=== PATIENT | female | born 1995 | race Caucasian/White ===

== ENCOUNTER 2023-11-03 10:33 | Emergency (ER) | payer OTHER ==
[~2023-11-03] VITALS: Ht 157.5 cm; Wt 49.9 kg
[2023-11-03] MEDS ORDERED: PRED50TA PO (10:54)
[2023-11-03] MEDS ORDERED: ALBU8.5H8 INH (10:54)
[2023-11-03] MEDS ORDERED: BENZ-13 PO (10:54)
[2023-11-03 11:05] VITALS: BP 116/75; TEMP 98.6; O2SAT 98
== END 2023-11-03 11:06 | disposition home or self-care (01) ==
LOC: ER 10:33
DX: J20.8 Acute bronchitis due to other specified organisms (principal)

== ENCOUNTER 2023-11-23 18:31 | Emergency (ER) | payer OTHER ==
[~2023-11-23] VITALS: Ht 157.5 cm; Wt 55.8 kg
[~2023-11-23 18:31] MED LIST: ALBU8.5H8 INH; BENZ-13 PO; PRED50TA PO
[2023-11-23] MEDS ORDERED: ACETAMINOPHEN ES 500 MG TABLET ONE (20:35)
[2023-11-23] MEDS ORDERED: CYCLOBENZAPRINE 10 MG TABLET ONE (20:36)
[2023-11-23] MEDS ORDERED: IBUPROFEN 600 MG TABLET ONE (20:36)
[2023-11-23] MEDS: ACETAMINOPHEN ES 500 MG TABLET PO ONE (20:39)
[2023-11-23] MEDS: CYCLOBENZAPRINE 10 MG TABLET PO ONE (20:39)
[2023-11-23] MEDS: IBUPROFEN 600 MG TABLET PO ONE (20:39)
[2023-11-23] MEDS ORDERED: CYCL5TAB PO (21:28)
[2023-11-23] MEDS ORDERED: IBUP-1955 PO (21:28)
[2023-11-23] MEDS ORDERED: ACET-2605 PO (21:28)
[2023-11-23] MEDS ORDERED: ONDA4TAB5 PO (21:28)
[2023-11-23 21:47] VITALS: BP 110/78; TEMP 98.3; O2SAT 98
== END 2023-11-23 21:50 | disposition home or self-care (01) ==
LOC: ER 18:33
DX: M54.6 Pain in thoracic spine (principal); Z79.899 Other long term (current) drug therapy; V89.2XXA Person injured in unspecified motor-vehicle accident, traffic, initial encounter; Y93.89 Activity, other specified; Y92.89 Other specified places as the place of occurrence of the external cause; Y99.8 Other external cause status